=== PATIENT | female | born 1955 | race African-American/Black ===

== ENCOUNTER 2018-01-28 11:11 | Emergency (ER) | payer BC ==
[~2018-01-28] VITALS: Ht 172.7 cm; Wt 88.0 kg
[2018-01-28] MEDS ORDERED: CARV6.2548 PO (11:22)
[2018-01-28] MEDS ORDERED: SODIUM CHLORIDE 0.9% 1,000 ML IV ONE (11:33)
[2018-01-28] MEDS ORDERED: KETOROLAC 30MG/ML VIAL IV STA (11:33)
[2018-01-28] MEDS ORDERED: METOCLOPRAMIDE HCL 10MG/2ML VIAL IV ONE (11:45)
[2018-01-28 12:22] LABS: BASOPHILS % 0.4 % (0.0-2.0); EOSINOPHILS % 4.5 % (0.0-5.0); HEMATOCRIT. 34.7 % (36.0-48.0); HEMOGLOBIN. 11.8 g/dL (12.0-16.0); MEAN CORPUSCULAR HEMOGLOBIN 28.8 pg (28.0-32.0); MEAN PLATELET VOLUME 7.6 fl (7.4-10.4); MONOCYTES % 8.4 % (2.0-8.0); NEUTROPHILS % 48.7 % (40.0-76.0); PLATELET 193 x1000/uL (130-400); RED BLOOD CELL COUNT 4.09 mill/uL (4.2-5.4); RED CELL DISTRIBUTION WIDTH 13.7 % (11.6-14.6)
[2018-01-28 12:28] LABS: CHLORIDE 105 mEq/L (98-107)
[2018-01-28 12:29] LABS: INR 1.1; PROTHROMBIN TIME 11.4 sec (9.4-11.6)
[2018-01-28 13:35] VITALS: BP 138/77
== END 2018-01-28 13:36 | disposition home or self-care (01) ==
LOC: ER 11:36
DX: R51 Headache (principal); I10 Essential (primary) hypertension; H53.8 Other visual disturbances; R11.0 Nausea; R79.1 Abnormal coagulation profile
CPT/HCPCS: 36415; 80053; 85025; 85610; 93005; 96361; 96374; 96375; 99285; J1885; J2765; J7030; Z7610